=== PATIENT | male | born 1965 | race Caucasian/White ===

== ENCOUNTER 2018-10-04 19:54 | Emergency (ER) | payer OTHER ==
--- NOTE | 2018-10-04 21:25 | RAD ---
LEFT KNEE FOUR VIEWS: HISTORY: Left knee pain after injury. TECHNIQUE: AP, lateral, and both oblique views of the left knee obtained. FINDINGS: Four views of the left knee demonstrate no evidence of left knee fractures, subluxations, or bony les ions. IMPRESSION: Normal four views left knee. POS: [facility]
== END 2018-10-04 21:31 | disposition home or self-care (01) ==
LOC: ERS 19:54
DX: S80.02XA Contusion of left knee, initial encounter (principal); F41.9 Anxiety disorder, unspecified; F32.9 Major depressive disorder, single episode, unspecified; F17.210 Nicotine dependence, cigarettes, uncomplicated; W22.8XXA Striking against or struck by other objects, initial encounter; Y92.69 Other specified industrial and construction area as the place of occurrence of the external cause